=== PATIENT | male | born 1930 | race Caucasian/White ===

== ENCOUNTER 2017-10-06 10:34 | Day surgery (SDC) | payer MEDICARE, BC ==
[2017-10-05 11:02] VITALS: BMI 24.3
--- NOTE | 2017-10-06 13:07 | OP ---
DATE OF PROCEDURE: 10/06/2017 PROCEDURES: 1. Esophagogastroduodenoscopy. 2. Colonoscopy with biopsy. SURGEON: Andres Salinas M.D. ANESTHESIA: Medications given per Anesthesiology Department. PREPROCEDURE DIAGNOSIS: Iron deficiency anemia requiring transfusion. POSTPROCEDURE DIAGNOSES: 1. Cecal tumor. 2. Severe diverticulosis coli. 3. Normal upper endoscopy. PROCEDURE IN DETAIL: A written consent was obtained prior to procedure. After adequate sedation, th e forward-viewing endoscope was advanced down the hypopharynx under direct vision to the third portio n of duodenum. The duodenum including the duodenal bulb appeared normal. Pulses patent. The gastri c antrum, body, fundus, and cardia all appeared normal. GE junction, lower, mid, and upper esophagus appeared normal. The instrument was then fully removed. Patient was then repositioned for colon exam. Digital exam performed was normal. Endoscope was adva nced to the cecum with great difficulty through the sigmoid colon as there was severe diverticulosis coli. In the cecum, a tumor mass was noted filling the entire cecum; however, the ileocecal valve wa s still visible and appears not to be obstructed. Biopsies were obtained. A 4 mm semi-pedunculated polyp was noted in the distal ascending colon and was not removed. The hepatic flexure, transverse c olon, splenic flexure, and descending colon appeared normal. Numerous diverticula were noted in the sigmoid colon with severe luminal narrowing. The rectal vault appeared normal including retroflexion . ASSESSMENT: 1. Cecal tumor. 2. Severe diverticulosis coli. 3. Otherwise normal upper endoscopy. RECOMMENDATIONS: Await biopsy result.
[2017-10-06] MEDS ORDERED: PHENYLEPHRINE-NS 100 MCG/ML 10 ML SYRINGE ONE ×2 (13:08→14:22)
[2017-10-06 13:31] LABS: #Eosinphils 0.1 thou/uL (0.0-0.7); #Lymphocytes 0.8 thou/uL (1.20-3.40); #Monocytes 0.4 thou/uL (0.11-0.59); #Neutrophils 3.5 thou/uL (1.40-6.50); %Basophils 0.7 % (0.0-1.0); %Eosinophils 2.4 % (0.0-10.0); %Lymphocytes 16.1 % (21.0-51.0); %Monocytes 9.1 % (0.0-10.0); %Neutrophils 71.7 % (42.0-75.0); Hemoglobin 9.7 g/dL (14.0-18.0); Mean Corpuscular HGB CONC 30.4 g/dL (32.0-36.0); Mean Corpuscular Hemoglobin 24.3 pg (27.0-31.0); Mean Corpuscular Volume 80.2 fl (80.0-94.0); Mean Platelet Volume 8.7 fL (7.4-10.4); Platelet Count 207 thou/uL (130-400); RBC Distribution Width 22.9 % (11.5-14.5); White Blood Cell (WBC) Count 4.8 thou/uL (4.8-10.8)
[2017-10-06 13:44] LABS: Anisocytosis MODERATE=16-30 cells (100X) (0-5/hpf); Hypochromia SLIGHT = 6-15 cells (100X) (0-5/hpf); MDiff Complete? YES; Ovalocytes MODERATE= 6-15 cells (100X) (0-1/hpf); Polychromasia MODERATE = 3-4 cells (100X) (0-2/hpf)
[2017-10-06 13:46] LABS: Anion Gap 13 mmol/L (10-20); BUN (Urea Nitrogen) 17 mg/dL (8.4-25.7); Calc. Creatinine Clearance 46 mL/min (70-130); Calcium 8.8 mg/dL (7.8-10.44); Carbon Dioxide 27 mmol/L (23-31); Chloride 104 mmol/L (98-107); Estimated GFR-MDRD 56; Glucose 89 mg/dL (83-110); Potassium 3.8 mmol/L (3.5-5.1); Sodium 140 mmol/L (136-145)
[2017-10-06] MEDS ORDERED: Lidocaine 1% PF 5 ML VIAL ONE (14:22)
[2017-10-06] MEDS ORDERED: PROPOFOL 200 MG/20 ML VIAL ONE (14:22)
== END 2017-10-06 14:06 | disposition home or self-care (01) ==
LOC: SDC 10:34
PROVIDERS: ATTEND Internal Medicine Gastroenterology
PROC: 0DJ08ZZ Inspection of Upper Intestinal Tract, Via Natural or Artificial Opening Endoscopic (ICD-10-PCS; principal; 2017-10-06)
PROC: 0DBH8ZX Excision of Cecum, Via Natural or Artificial Opening Endoscopic, Diagnostic (ICD-10-PCS; 2017-10-06)
DX: C18.0 Malignant neoplasm of cecum (principal); D50.9 Iron deficiency anemia, unspecified; K57.30 Diverticulosis of large intestine without perforation or abscess without bleeding; E78.00 Pure hypercholesterolemia, unspecified; I48.91 Unspecified atrial fibrillation; I50.9 Heart failure, unspecified; I25.10 Atherosclerotic heart disease of native coronary artery without angina pectoris; I25.2 Old myocardial infarction; Z79.01 Long term (current) use of anticoagulants; Z79.899 Other long term (current) drug therapy; Z88.8 Allergy status to other drugs, medicaments and biological substances; Z87.891 Personal history of nicotine dependence
CPT/HCPCS: 36415; 80048; 82378; 85025; 88305; J2001; J2704

== ENCOUNTER 2017-11-05 10:26 | Outpatient (CLI) | payer MEDICARE, BC ==
[2017-11-05 12:31] LABS: INR-International Normal Ratio 1.1; PTT 29.4 SEC (22.9-36.1); Prothrombin Time 14.1 SEC (12.0-14.7)
[2017-11-05 12:32] LABS: Hemoglobin A1c 4.9 % (4.0-6.0)
[2017-11-05 12:38] LABS: Anion Gap 10 mmol/L (10-20); BUN (Urea Nitrogen) 19 mg/dL (8.4-25.7); Calc. Creatinine Clearance 0 mL/min (70-130); Calcium 9.4 mg/dL (7.8-10.44); Carbon Dioxide 27 mmol/L (23-31); Chloride 105 mmol/L (98-107); Estimated GFR-MDRD 52; Glucose 90 mg/dL (83-110); Potassium 4.3 mmol/L (3.5-5.1); Sodium 138 mmol/L (136-145)
[2017-11-05 12:44] LABS: #Eosinphils 0.1 thou/uL (0.0-0.7); #Lymphocytes 1.2 thou/uL (1.20-3.40); #Monocytes 0.5 thou/uL (0.11-0.59); #Neutrophils 4.4 thou/uL (1.40-6.50); %Basophils 0.7 % (0.0-1.0); %Eosinophils 1.5 % (0.0-10.0); %Lymphocytes 19.7 % (21.0-51.0); %Monocytes 8.1 % (0.0-10.0); %Neutrophils 70.1 % (42.0-75.0); Anisocytosis SLIGHT = 6-15 cells (100X) (0-5/hpf); Hemoglobin 12.1 g/dL (14.0-18.0); MDiff Complete? YES; Mean Corpuscular HGB CONC 30.4 g/dL (32.0-36.0); Mean Corpuscular Hemoglobin 26.2 pg (27.0-31.0); Mean Corpuscular Volume 86.2 fL (78.0-98.0); Mean Platelet Volume 9.9 fL (7.4-10.4); Ovalocytes SLIGHT = 2-5 cells (100X) (0-1/hpf); PLT Morphology Comment Appears Adequate; Platelet Count 200 thou/uL (130-400); RBC Distribution Width 21.6 % (11.5-14.5); Red Blood Cell (RBC) Count 4.62 mill/uL (4.70-6.10); White Blood Cell (WBC) Count 6.3 thou/uL (4.8-10.8)
== END 2017-11-05 10:27 | disposition home or self-care (01) ==
LOC: LABBT 10:26
PROVIDERS: ATTEND Surgery
DX: Z01.818 Encounter for other preprocedural examination (principal); C18.9 Malignant neoplasm of colon, unspecified
CPT/HCPCS: 80048; 83036; 85025; 85610; 85730

== ENCOUNTER 2017-11-05 10:30 | Inpatient (IN) | payer MEDICARE, BC ==
[2017-11-05 11:15] VITALS: BMI 24.3
[2017-11-08] MEDS ORDERED: Midazolam HCl 2 mg/2 ml Vial ONE ×2 (06:27→06:44)
[2017-11-08] MEDS ORDERED: Fentanyl 100 MCG/2 ML VIAL ONE (06:27)
[2017-11-08] MEDS ORDERED: Ketamine 50 MG/ML VIAL ONE (06:44)
[2017-11-08] MEDS ORDERED: Ondansetron HCl/PF 4 MG/2 ML Vial ONE ×2 (06:44→14:45)
[2017-11-08] MEDS ORDERED: Albumin 5% 500 ML ONE (06:44)
[2017-11-08] MEDS ORDERED: Fentanyl 250 MCG/5 ML VIAL ONE (06:44)
[2017-11-08] MEDS ORDERED: Phenylephrine HCL 10 MG/ML VIAL ONE (06:49)
[2017-11-08] MEDS ORDERED: cefOXitin 2 GM VIAL ONE (06:51)
[2017-11-08] MEDS ORDERED: Sodium Chloride 0.9% 100 ML ONE (06:51)
[2017-11-08] MEDS ORDERED: Dexamethasone 4 mg/ml Vial ONE (07:02)
[2017-11-08] MEDS ORDERED: SUGAMMADEX SODIUM 500 MG/5 ML VIAL ONE (09:15)
[2017-11-08] MEDS ORDERED: hydrALAZINE 20 MG/ML VIAL SLOW IVP PRN (10:37)
[2017-11-08] MEDS ORDERED: Promethazine HCl 25 MG/ML VIAL IM PRN (10:37)
[2017-11-08] MEDS ORDERED: Fentanyl 100 MCG/2 ML VIAL SLOW IVP PRN ×2 (10:37)
[2017-11-08] MEDS ORDERED: Ondansetron HCl/PF 4 MG/2 ML Vial IVP PRN (10:37)
[2017-11-08] MEDS ORDERED: Bupivacaine HCl 0.5%/Epinephrine 1:200,000/PF 30 ml Vial ONE (11:09)
[2017-11-08] MEDS ORDERED: Acetaminophen 1,000 MG in Premix Bag 1 BAG IVPB SCH (12:00)
[2017-11-08] MEDS: Sodium Chloride 0.9% 1,000 ML IV SCH ×2 (12:00→23:46)
[2017-11-08] MEDS ORDERED: Carvedilol 6.25 MG TAB PO SCH (12:30)
[2017-11-08] MEDS ORDERED: Furosemide 20 MG TAB PO SCH (12:30)
[2017-11-08] MEDS ORDERED: Digoxin 0.25 MG TAB PO SCH (12:30)
[2017-11-08] MEDS ORDERED: Levothyroxine Sodium 50 MCG TAB PO SCH (12:30)
[2017-11-08] MEDS: cefOXitin 2 GM in Sodium Chloride 0.9% 100 ML IVPB SCH ×2 (14:40→23:46)
[2017-11-08] MEDS ORDERED: Dexamethasone 20 MG/5 ML VIAL ONE (14:45)
[2017-11-08] MEDS ORDERED: Glycopyrrolate 0.2 MG/ML 5 ML SYRINGE ONE (14:45)
[2017-11-08] MEDS ORDERED: Ketorolac Tromethamine 30 MG/ML VIAL ONE (14:45)
[2017-11-08] MEDS ORDERED: ePHEDrine/0.9% NaCl/PF SYRINGE 50 mg/10 ml ONE (14:45)
[2017-11-08] MEDS ORDERED: PROPOFOL 200 MG/20 ML VIAL ONE (14:45)
[2017-11-08] MEDS: Acetaminophen 1,000 MG in Premix Bag 1 BAG IVPB SCH ×2 (16:12→20:37)
[2017-11-08] MEDS: Enoxaparin Sodium 40 MG/0.4 ML SYRINGE SC SCH (20:38)
[2017-11-08] MEDS: Famotidine 20 MG TAB PO SCH (20:38)
[2017-11-08] MEDS: Famotidine/PF 20 mg/2ml Vial SLOW IVP SCH (20:41)
[2017-11-08] MEDS: Carvedilol 6.25 MG TAB PO SCH (20:43)
[2017-11-09] MEDS: Acetaminophen 1,000 MG in Premix Bag 1 BAG IVPB SCH ×2 (02:26→09:04)
[2017-11-09] MEDS: Levothyroxine Sodium 50 MCG TAB PO SCH (05:44)
[2017-11-09 06:00] LABS: #Lymphocytes 0.9 thou/uL (1.20-3.40); #Monocytes 0.7 thou/uL (0.11-0.59); #Neutrophils 11.4 thou/uL (1.40-6.50); %Basophils 0.3 % (0.0-1.0); %Eosinophils 0.1 % (0.0-10.0); %Lymphocytes 6.7 % (21.0-51.0); %Monocytes 5.5 % (0.0-10.0); %Neutrophils 87.4 % (42.0-75.0); Hemoglobin 8.1 g/dL (14.0-18.0); Mean Corpuscular HGB CONC 31.2 g/dL (32.0-36.0); Mean Corpuscular Hemoglobin 26.8 pg (27.0-31.0); Platelet Count 162 thou/uL (130-400); RBC Distribution Width 20.7 % (11.5-14.5); Red Blood Cell (RBC) Count 3.01 mill/uL (4.70-6.10)
[2017-11-09 06:12] LABS: Anion Gap 13 mmol/L (10-20); BUN (Urea Nitrogen) 19 mg/dL (8.4-25.7); Calc. Creatinine Clearance 33 mL/min (70-130); Carbon Dioxide 24 mmol/L (23-31); Chloride 103 mmol/L (98-107); Estimated GFR-MDRD 39; Glucose 141 mg/dL (83-110); Potassium 4.2 mmol/L (3.5-5.1); Sodium 136 mmol/L (136-145)
[2017-11-09] MEDS: Furosemide 20 MG TAB PO SCH (09:05)
[2017-11-09] MEDS: Carvedilol 6.25 MG TAB PO SCH ×2 (09:05→20:28)
[2017-11-09] MEDS: Digoxin 0.25 MG TAB PO SCH (09:05)
[2017-11-09] MEDS: Famotidine 20 MG TAB PO SCH (09:05)
[2017-11-09] MEDS: Famotidine/PF 20 mg/2ml Vial SLOW IVP SCH (10:40)
--- NOTE | 2017-11-09 13:54 | PRG ---
DATE OF SERVICE: 11/09/2017 He is postop day #1 right colectomy. Mr. Velazco is doing well. He is tolerating liquids without diffi culty. He has been ambulatory, has no real complaints of pain. PHYSICAL EXAMINATION: VITAL SIGNS: He is afebrile. Vital signs are stable. ABDOMEN: Soft, nontender, nondistended. He has bowel sounds that are present. ASSESSMENT: Postop day #1 right colectomy, laparoscopic hand-assist. He needed to have Butts placed overnight. We will leave that in until tomorrow. If doing well tomor row, we will advance to full liquid diet.
[2017-11-09] MEDS: Enoxaparin Sodium 40 MG/0.4 ML SYRINGE SC SCH (20:27)
[2017-11-09] MEDS: Acetaminophen 325 MG TAB PO PRN (22:58)
[2017-11-10] MEDS ORDERED: Sodium Chloride 77 MEQ in Dextrose 10% in Water 1,000 ML IV SCH (03:45)
[2017-11-10] MEDS: Levothyroxine Sodium 50 MCG TAB PO SCH (05:32)
[2017-11-10] MEDS: Digoxin 0.25 MG TAB PO SCH (08:36)
[2017-11-10] MEDS: Famotidine 20 MG TAB PO SCH (08:36)
[2017-11-10] MEDS: Carvedilol 6.25 MG TAB PO SCH ×2 (08:36→21:38)
[2017-11-10] MEDS: Furosemide 20 MG TAB PO SCH (08:36)
[2017-11-10] MEDS: Famotidine/PF 20 mg/2ml Vial SLOW IVP SCH (08:41)
[2017-11-10] MEDS: Acetaminophen 325 MG TAB PO PRN (21:38)
[2017-11-11] MEDS: Levothyroxine Sodium 50 MCG TAB PO SCH (05:40)
[2017-11-11 06:01] LABS: #Eosinphils 0.1 thou/uL (0.0-0.7); #Monocytes 0.6 thou/uL (0.11-0.59); #Neutrophils 5.4 thou/uL (1.40-6.50); %Basophils 0.1 % (0.0-1.0); %Eosinophils 1.1 % (0.0-10.0); %Lymphocytes 13.7 % (21.0-51.0); Hemoglobin 7.5 g/dL (14.0-18.0); Mean Corpuscular HGB CONC 31.9 g/dL (32.0-36.0); Mean Corpuscular Hemoglobin 27.8 pg (27.0-31.0); Platelet Count 157 thou/uL (130-400); RBC Distribution Width 20.9 % (11.5-14.5); Red Blood Cell (RBC) Count 2.69 mill/uL (4.70-6.10); White Blood Cell (WBC) Count 7.1 thou/uL (4.8-10.8)
[2017-11-11 06:02] LABS: Anion Gap 12 mmol/L (10-20); BUN (Urea Nitrogen) 15 mg/dL (8.4-25.7); Calc. Creatinine Clearance 46 mL/min (70-130); Calcium 8.8 mg/dL (7.8-10.44); Carbon Dioxide 26 mmol/L (23-31); Chloride 107 mmol/L (98-107); Estimated GFR-MDRD 56; Glucose 92 mg/dL (83-110); Potassium 4.3 mmol/L (3.5-5.1); Sodium 141 mmol/L (136-145)
[2017-11-11 07:54] VITALS: TEMP 98.1
[2017-11-11] MEDS: Carvedilol 6.25 MG TAB PO SCH (08:16)
[2017-11-11] MEDS: Furosemide 20 MG TAB PO SCH (08:16)
[2017-11-11] MEDS: Famotidine 20 MG TAB PO SCH (08:17)
[2017-11-11] MEDS: Memantine Hcl [Namenda Xr] 28 MG PO SCH (08:29)
[2017-11-11] MEDS ORDERED: Digoxin 0.125 MG TAB PO SCH (09:00)
[2017-11-11] MEDS: Famotidine/PF 20 mg/2ml Vial SLOW IVP SCH (10:01)
[2017-11-11 11:25] VITALS: BP 106/68
--- NOTE | 2017-11-11 13:20 | OP ---
DATE OF PROCEDURE: 11/08/2017 PREOPERATIVE DIAGNOSIS: Ascending colon cancer. POSTOPERATIVE DIAGNOSIS: Ascending colon cancer. PROCEDURE: Laparoscopic hand-assist right colectomy by Dr. Colón without complication. SURGEON: Nahum Colón M.D. ANESTHESIA: General. ESTIMATED BLOOD LOSS: Minimal. COMPLICATIONS: None. FINDINGS: Masses in the specimen. TECHNIQUE: The patient was taken to the operating room, placed supine on the table. After general a nesthetic was obtained, a Butts was placed. The abdomen was shaved, prepped, and draped in a sterile fashion. Left subcostal 5-mm Optiview trocar was placed in usual fashion. High-flow pneumoperitone um obtained, 5-mm ports were placed suprapubic and in the left abdomen. The right colon was mobilize d along the white line of Toldt using cautery. The ureter was found and excluded from the dissection . Dissection is then performed on the medial aspect of the ascending colon mesentery. The base of t he ileocolic artery is skeletonizing, the ileocolic artery was taken using the LigaSure. Dissection was then taken out behind the colon towards the hepatic flexure. The duodenum was found and excluded from the dissection. Dissection was then performed all the way up and circumferentially around the proximal transverse colon. A 5 mm incision is made around and above the umbilicus. Cautery was used to dissect down to and into the abdominal cavity and the hand-assisted GelPort is placed. The rest of the hepatic flexure attachments were taken. The top of the hand-assist port is removed. Pneumo i nsufflation let down. This allowed the terminal ileum and right colon to be brought up out through t he GelPort. DEJON-75 was fired across the terminal ileum, reload was fired across the proximal hepatic flexure. The small bowel was able to be brought up against the transverse colon in an isoperistalti c fashion and holding stitches are placed on the antimesenteric surface of each to hold them together . Enterotomy is made on each and a [id number] isoperistaltic staple line is performed using DEJON-75 stapler. The common enterotomy/colotomy was closed using running 3-0 Vicryl full thickness and then 3-0 Vicryl serosal. Mesenteric defects closed using silk. There is no bleeding in the abdomen. Al l instrument counts, needle counts, lap counts are correct. The specimen sent to path for final diag nosis. The fascial defect was closing running PDS suture. Subcutaneous tissues are irrigated. Inci sions are closed using 3-0 Vicryl, 4-0 Monocryl, and Dermabond. The patient was en route to recovery in stable condition. All instrument counts, needle counts, lap counts were correct.
--- NOTE | 2017-11-11 14:51 | DIS ---
DATE OF ADMISSION: 11/08/2017 DATE OF DISCHARGE: 11/11/2017 ADMISSION DIAGNOSIS: Ascending colon cancer. DISCHARGE DIAGNOSIS: Ascending colon cancer. PROCEDURES: Laparoscopic hand-assist right hemicolectomy by Dr. Colón without complication. CONDITION AT DISCHARGE: Improved. STAFF: Dr. Colón. HOSPITAL COURSE: On postop day 3, the patient is tolerating full liquids. He has had multiple bowel movements. He had some blood in his bowel movements early on, has resolved. His hemoglobin was 7 y esterday and 7.5 today. He is being discharged home and we will follow up with me in 2 weeks.
== END 2017-11-11 14:00 | disposition home health service (06) | DRG 331 ==
LOC: SURG A 11-08 05:58
PROVIDERS: ADMIT Surgery; ATTEND Surgery
PROC: 0DTF4ZZ Resection of Right Large Intestine, Percutaneous Endoscopic Approach (ICD-10-PCS; principal; 2017-11-08)
DX: C18.2 Malignant neoplasm of ascending colon (principal); I25.10 Atherosclerotic heart disease of native coronary artery without angina pectoris; I25.5 Ischemic cardiomyopathy; I10 Essential (primary) hypertension; E78.5 Hyperlipidemia, unspecified; F03.90 Unspecified dementia, unspecified severity, without behavioral disturbance, psychotic disturbance, mood disturbance, and anxiety; N40.0 Benign prostatic hyperplasia without lower urinary tract symptoms; I25.2 Old myocardial infarction; I48.0 Paroxysmal atrial fibrillation; Z95.810 Presence of automatic (implantable) cardiac defibrillator; Z86.73 Personal history of transient ischemic attack (TIA), and cerebral infarction without residual deficits; Z85.828 Personal history of other malignant neoplasm of skin; Z79.01 Long term (current) use of anticoagulants; Z87.891 Personal history of nicotine dependence; Z79.82 Long term (current) use of aspirin; Z79.899 Other long term (current) drug therapy; Z01.818 Encounter for other preprocedural examination
CPT/HCPCS: 36415; 36416; 80048; 83036; 85018; 85025; 85610; 85730; 88309; J0131; J0670; J0694; J1100; J1642; J1650; J1885; J2250; J2370; J2405; J2704; J3010; J7050; P9045

== ENCOUNTER 2018-03-11 00:45 | Inpatient (IN) | payer MEDICARE, BC ==
[2018-03-11 01:23] LABS: #Lymphocytes 0.7 thou/uL (1.20-3.40); #Monocytes 0.7 thou/uL (0.11-0.59); #Neutrophils 12.9 thou/uL (1.40-6.50); %Basophils 0.2 % (0.0-1.0); %Eosinophils 0.2 % (0.0-10.0); %Lymphocytes 4.9 % (21.0-51.0); %Monocytes 4.6 % (0.0-10.0); %Neutrophils 90.2 % (42.0-75.0); Hemoglobin 12.3 g/dL (14.0-18.0); Mean Corpuscular HGB CONC 30.3 g/dL (32.0-36.0); Mean Corpuscular Hemoglobin 25.9 pg (27.0-31.0); Mean Corpuscular Volume 85.6 fL (78.0-98.0); Mean Platelet Volume 9.2 fL (7.4-10.4); Platelet Count 222 thou/uL (130-400); RBC Distribution Width 15.8 % (11.5-14.5); Red Blood Cell (RBC) Count 4.77 mill/uL (4.70-6.10); White Blood Cell (WBC) Count 14.3 thou/uL (4.8-10.8)
[2018-03-11] MEDS ORDERED: cefTRIAXone\\ROCEPHIN 2 GM VIAL ONE (01:35)
[2018-03-11] MEDS ORDERED: Sodium Chloride 0.9% 100 ML ONE (01:35)
[2018-03-11 01:43] LABS: ALT (SGPT) 10 U/L (8-55); AST (SGOT) 14 U/L (5-34); Albumin 4.1 g/dL (3.4-4.8); Alkaline Phosphatase 111 U/L (40-150); Anion Gap 18 mmol/L (10-20); BUN (Urea Nitrogen) 20 mg/dL (8.4-25.7); Bilirubin, Total 1.4 mg/dL (0.2-1.2); CK (CPK) 88 U/L (30-200); Calc. Creatinine Clearance 0 mL/min (70-130); Calcium 9.7 mg/dL (7.8-10.44); Carbon Dioxide 21 mmol/L (23-31); Chloride 106 mmol/L (98-107); Estimated GFR-MDRD 42; Globulin 2.9 g/dL (2.4-3.5); Glucose 256 mg/dL (83-110); Potassium 4.9 mmol/L (3.5-5.1); Sodium 140 mmol/L (136-145)
[2018-03-11 01:46] LABS: CKMB 1.9 ng/mL (0-6.6); Troponin I 0.025 ng/mL (< 0.028)
[2018-03-11] MEDS ORDERED: Acetaminophen 325 MG TAB PO PRN (03:20)
[2018-03-11] MEDS ORDERED: Ondansetron ODT 4 MG TAB SL PRN (03:20)
[2018-03-11] MEDS ORDERED: Ondansetron PF 4 MG/2 ML Vial IVP PRN ×2 (03:20→08:38)
[2018-03-11 03:39] VITALS: BMI 22.7
[2018-03-11 05:28] LABS: Lactic Acid 2.9 mmol/L (0.5-2.2)
--- NOTE | 2018-03-11 08:00 | RAD ---
SINGLE VIEW OF THE CHEST: COMPARISON: 08/27/2014. HISTORY: Dyspnea. FINDINGS: A single view of the chest shows an enlarged but stable cardiomediastinal silhouette. The pacemaker is unchanged in position. Increased opacities seen in the bilateral perihilar regions which may repr esent pulmonary vascular congestion. No consolidation or pleural effusion is seen. IMPRESSION: Cardiomegaly and pulmonary vascular congestion. POS: CET
[2018-03-11] MEDS ORDERED: Sodium Chloride 0.9% 1,000 ML IV SCH (08:45)
[2018-03-11] MEDS ORDERED: Dextrose 50% Abboject 50 ML SYRINGE IVP PRN (08:47)
[2018-03-11] MEDS ORDERED: Dextrose 5% in Water 1,000 ML IV PRN (08:47)
[2018-03-11] MEDS ORDERED: Insulin Regular 300 UNITS/3 ML VIAL SC PRN (08:47)
[2018-03-11] MEDS: Apixaban 2.5 MG TAB PO SCH (09:59)
[2018-03-11] MEDS: guaiFENesin ER 600 MG TAB PO SCH ×2 (10:04→20:34)
[2018-03-11] MEDS: Carvedilol 6.25 MG TAB PO SCH ×2 (10:04→20:35)
[2018-03-11] MEDS: Famotidine 20 MG TAB PO SCH (10:04)
[2018-03-11] MEDS: Acetaminophen 325 MG TAB PO SCH ×2 (11:30→18:32)
--- NOTE | 2018-03-11 18:42 | HP ---
DATE OF ADMISSION: 03/11/2018 CHIEF COMPLAINT ON ADMISSION: Pneumonia. HISTORY OF PRESENT ILLNESS: The patient is an 87-year-old male with severe dementia, cared for by hi s in their home. She is the historian because he cannot recall any details. She states that he was in his usual state of good health until the night before admission when he started to have cough ing. She gave him some Delsym and it seemed to suppress it a little until bedtime when his coughing then became much worse and unstoppable. It woke her up. She went and listened to him and he sounded like he could not catch his breath, so she called 911. The EMS arrived and put him on BiPAP and bro ught him to the emergency room, where by x-ray, he was noted to have a right lower lobe pneumonia. H e was put in for treatment of that. He denies any chest pain of any type. There has been no fever, nausea, vomiting, or diarrhea, and his symptoms have not been relieved by anything. PAST MEDICAL HISTORY: Significant for CHF. He had an acute [place] in with stent placement in the 1999, pacemaker defibrillator has been placed. He has moderate cognitive impairment at this point, hypertension, hyperthyroid, GERD, and dyslipidemia. PAST SURGICAL HISTORY: His prior surgery includes the ACID and pacemaker placed in 2013 and 2015, 2 stents placed in 2013, and an ablation. He has also had colon surgery. PSYCHIATRIC HISTORY: There is no psychiatric history. SOCIAL HISTORY: He denies any alcohol or drug use and he is . ALLERGIES: He has allergies to NIACIN and PRAVACHOL. MEDICATIONS ON ADMISSION: Carvedilol 6.25 mg b.i.d., digoxin 0.125 mg once a day, aspirin 81 mg a da y, vitamin D 1000 international units a day, Zantac 300 mg once a day, Namenda 28 mg once in the even ing, magnesium capsule 400 mg once a day, Lasix 20 mg once a day, potassium chloride 10 mEq once a da y, atorvastatin 40 mg at bedtime, Synthroid 50 mcg daily, and Eliquis 2.5 mg once a day. REVIEW OF SYSTEMS: His review of systems at the time of admission includes, General: No malaise, we akness, or fever; however, he has had protracted coughing and does report general weakness. HEENT: No lesions in the ears, eyes, nose, or throat with drainage or pain. Cardiovascular: Denies any pal pitations, chest pain, syncope. Respiratory: Persistent intractable coughing with shortness of ro[place] th. Gastrointestinal: Denies nausea, vomiting, diarrhea, or pain in the abdomen. Genitourinary: D enies dysuria, blood in the urine or stool. Musculoskeletal: Denies any back pain or joint pain. N o muscle aches or pains. Skin: Without any rashes or lesions. Neurologic: Significant for altered mental status and that he has no short-term memory left, but denies headaches, dizziness, any recent falls. Endocrine: Denies being cold having diarrhea, excessive thirst, or urination. Psychiatric: Again, has no recent memory, but denies hallucinations or depression. PHYSICAL EXAMINATION: VITAL SIGNS: At the time of admission, blood pressure 133/84, pulse 115, respirations 24, temperatur e 98.4. Pain scale 0/10 and O2 sat after coming into the ambulance with BiPAP was 90. His temperatu re while in the ER went up to 100.5 axillary. GENERAL: This is an elderly male, alert, cooperative, responsive. HEENT: Normocephalic and atraumatic. Pupils with diminished reactivity to light at 2 to 3 mm each w ith arcus senilis bilaterally. TMs, nares, pharynx are clear. CHEST: Rales in the right lower lobe, otherwise clear. HEART: Regular rate and rhythm without murmur. Tachycardic. ABDOMEN: Soft, nontender without organomegaly. GENITOURINARY: Deferred. EXTREMITIES: Without clubbing, cyanosis, or edema. There is mild muscular wasting in all extremitie s. SKIN: With generally poor turgor and no acute lesions. NEUROLOGIC: Cranial nerves are intact. Unable to test gait and cerebellar function at this time due to bedfastness. Deep tendon reflexes are at 2 in upper and lower extremities. Sensory exam is olimpia sly intact. Mental status reveals an alert, friendly male who is oriented x1 and euthymic, and denie s any thoughts of delusions or depression. His speech is spontaneous and clear and his thoughts are tangential . LABORATORY AND X-RAY FINDINGS: The lab on admission showed WBC is 14.3, hemoglobin 12.3, hematocrit 40.8 with platelets of 222. Distinct left shift is noted in the differential. Sodium 140, potassium 4.9, chloride is 106, CO2 is at 21, BUN is at 20, creatinine 1.58 with a GFR of 42. Glucose is 256. Point of care glucose two hours later is 115. Lactic acid was initially 3.9 and is now down to 2.9 . Liver functions are unremarkable. Cardiac enzymes are unremarkable. His BNP is slightly elevated at 1080. Chest x-ray confirms the right lower lobe pneumonia. ASSESSMENT: 1. Right lower lobe pneumonia. 2. Congestive heart failure, mild. 3. Severe dementia. 4. Dyslipidemia. 5. Hypothyroidism. PLAN: Plan will be to continue IV antibiotics until white count is normal and the patient no longer needs BiPAP for dyspnea. We will have a historical site guide consult just in case we need to manage his mild heart failure more aggressively.
[2018-03-11 19:53] LABS: Bilirubin Negative (Negative); Blood, Urine Negative (Negative); Clarity CLEAR (Clear); Glucose, Urine (Dipstick) Negative (Negative); Leukocyte Trace (Negative); Nitrite Negative (Negative); Protein, Urine (Dipstick) Trace mg/dL (Neg-Trace); Specific Gravity, Urine 1.026 (1.002-1.036); Urobilinogen 0.2 mg/dL (0.2-1.0)
[2018-03-11 19:58] LABS: Bacteria/HPF None Seen HPF (None Seen); Hyaline Casts/LPF 0-3 HYALINE CAST LPF (0-3 Hyaline); Pathc Cast-AUWi Flag 0.14 (0-2.49); Squamous Epithelial 0-3 HPF (0-3)
[2018-03-11 20:12] LABS: Transitional Epithelial 0-3 HPF (0-3)
[2018-03-11] MEDS: Atorvastatin Calcium 20 MG TAB PO SCH (20:35)
[2018-03-12] MEDS: Acetaminophen 325 MG TAB PO SCH ×4 (00:31→17:47)
[2018-03-12] MEDS: cefTRIAXone\\ROCEPHIN 1 GM in Sodium Chloride 0.9% 100 ML IVPB SCH (00:32)
[2018-03-12] MEDS: Levothyroxine Sodium 50 MCG TAB PO SCH (04:38)
[2018-03-12 04:56] LABS: #Lymphocytes 0.8 thou/uL (1.20-3.40); #Monocytes 0.7 thou/uL (0.11-0.59); #Neutrophils 6.1 thou/uL (1.40-6.50); %Basophils 0.3 % (0.0-1.0); %Eosinophils 0.5 % (0.0-10.0); %Lymphocytes 9.9 % (21.0-51.0); %Monocytes 9.6 % (0.0-10.0); %Neutrophils 79.7 % (42.0-75.0); Hemoglobin 9.4 g/dL (14.0-18.0); Mean Corpuscular HGB CONC 30.2 g/dL (32.0-36.0); Mean Corpuscular Hemoglobin 25.9 pg (27.0-31.0); Mean Corpuscular Volume 85.9 fL (78.0-98.0); Mean Platelet Volume 9.8 fL (7.4-10.4); Platelet Count 148 thou/uL (130-400); RBC Distribution Width 15.8 % (11.5-14.5); Red Blood Cell (RBC) Count 3.61 mill/uL (4.70-6.10); White Blood Cell (WBC) Count 7.7 thou/uL (4.8-10.8)
[2018-03-12 05:10] LABS: Cardiac Risk 2.4 (Less than 4.5)
--- NOTE | 2018-03-12 07:48 | PDOC.CTH ---
Cardiology Progress Note - Subjective PT doing much better today. No SOB present. He would like to go home - Objective Vital Signs Temp Pulse Resp BP BP Pulse Ox 03/12/18 07:42 98.5 F 114 H 94 H 101/65 18 L 03/12/18 06:54 92 L 03/12/18 06:52 89 18 92 L 03/12/18 04:00 98.2 F 82 16 109/68 92 L 03/12/18 00:00 98.3 F 90 16 116/63 92 L 03/11/18 21:14 91/58 L 03/11/18 21:04 98.7 F 93 16 89/47 L 88/47 L 93 L 03/11/18 20:00 95 Weight 158 lb 11.2 oz 03/11/18 03/12/18 03/13/18 06:59 06:59 05:59 Intake Total 325 Balance 325 - Physical Examination General/Neuro: alert & oriented x3, NAD Neck: carotid US brisk, no JVD present Lungs: unlabored respirations Heart: PMI normal, RRR Abdomen: NT/ND, soft Extremities: + femoral B - Labs Result Diagrams: 03/12/18 04:07 03/11/18 01:12 Troponin/CKMB CK-MB (CK-2) 1.9 ng/mL (0-6.6) 03/11/18 01:12 Troponin I 0.025 ng/mL (< 0.028) 03/11/18 01:12 - Assessment/Plan Pneumonia CAD Previous OK s/p stnet s/p AICD Doing much better Pt has diuresed. Echo pending Ok from my standpoint to dc with outpatient fu with Dr. Busch ACEI, ARB not used secondary to low BP. Continue statin, BB, ASA
[2018-03-12] MEDS: Carvedilol 6.25 MG TAB PO SCH ×2 (08:03→20:02)
[2018-03-12] MEDS: Apixaban 2.5 MG TAB PO SCH ×2 (08:03→20:02)
[2018-03-12] MEDS: guaiFENesin ER 600 MG TAB PO SCH ×2 (08:03→20:02)
[2018-03-12] MEDS: Famotidine 20 MG TAB PO SCH (08:04)
[2018-03-12] MEDS ORDERED: Prevnar 13-Val Conj/PF 0.5 ML SYRINGE IM ONE (09:00)
[2018-03-12] MEDS ORDERED: Apixaban 2.5 MG TAB PO SCH (10:45)
[2018-03-12] MEDS: Atorvastatin Calcium 20 MG TAB PO SCH (20:02)
[2018-03-12] MEDS ORDERED: Promethazine 25 MG TAB PO SCH (21:00)
[2018-03-13] MEDS: Acetaminophen 325 MG TAB PO SCH ×3 (00:47→13:00)
[2018-03-13] MEDS: cefTRIAXone\\ROCEPHIN 1 GM in Sodium Chloride 0.9% 100 ML IVPB SCH (00:48)
[2018-03-13 04:41] LABS: #Eosinphils 0.1 thou/uL (0.0-0.7); #Lymphocytes 0.7 thou/uL (1.20-3.40); #Monocytes 0.5 thou/uL (0.11-0.59); #Neutrophils 6.2 thou/uL (1.40-6.50); %Basophils 0.1 % (0.0-1.0); %Eosinophils 0.8 % (0.0-10.0); %Lymphocytes 9.3 % (21.0-51.0); %Monocytes 6.2 % (0.0-10.0); %Neutrophils 83.6 % (42.0-75.0); Hemoglobin 10.2 g/dL (14.0-18.0); Mean Corpuscular HGB CONC 30.9 g/dL (32.0-36.0); Mean Corpuscular Hemoglobin 26.3 pg (27.0-31.0); Mean Corpuscular Volume 85.2 fL (78.0-98.0); Mean Platelet Volume 9.7 fL (7.4-10.4); Platelet Count 157 thou/uL (130-400); RBC Distribution Width 15.7 % (11.5-14.5); Red Blood Cell (RBC) Count 3.86 mill/uL (4.70-6.10); White Blood Cell (WBC) Count 7.5 thou/uL (4.8-10.8)
[2018-03-13] MEDS: Levothyroxine Sodium 50 MCG TAB PO SCH (04:43)
[2018-03-13 05:08] LABS: Anion Gap 13 mmol/L (10-20); BUN (Urea Nitrogen) 22 mg/dL (8.4-25.7); Calc. Creatinine Clearance 42 mL/min (70-130); Carbon Dioxide 21 mmol/L (23-31); Chloride 107 mmol/L (98-107); Estimated GFR-MDRD 55; Glucose 106 mg/dL (83-110); Potassium 3.9 mmol/L (3.5-5.1); Sodium 137 mmol/L (136-145)
[2018-03-13] MEDS: Apixaban 2.5 MG TAB PO SCH (08:14)
[2018-03-13] MEDS: guaiFENesin ER 600 MG TAB PO SCH (08:15)
[2018-03-13] MEDS: Carvedilol 6.25 MG TAB PO SCH (08:16)
[2018-03-13] MEDS: Famotidine 20 MG TAB PO SCH (08:17)
--- NOTE | 2018-03-13 10:47 | CON ---
DATE OF CONSULTATION: 03/11/2018 REASON FOR CONSULTATION: History of CAD status post OK and recent pneumonia. HISTORY OF PRESENT ILLNESS: Mr. Velazco is a pleasant 87-year-old gentleman who is the patient of Dr. Alvina Busch. He has a history of CAD, status post stent placement and myocardial infarction. He recently presented with shortness of breath. This occurred after exertion. He had associated cough that was productive. He has significant shortness of breath and placed on BiPAP while in the emergen cy room. He was diagnosed with right lower lobe pneumonia. PAST MEDICAL AND SURGICAL HISTORY: As above including a previous OK status post stent placement, ICD placement, hypertension, hyperlipidemia. SOCIAL HISTORY: No current tobacco or alcohol use. ALLERGIES: NIACIN, PRAVACHOL. HOME MEDICATIONS: Include carvedilol, digoxin, Zantac, vitamin D, magnesium, Lasix, potassium, atorv astatin, Synthroid and Eliquis. REVIEW OF SYSTEMS: Ten-point review of systems reviewed and as above, otherwise negative. PHYSICAL EXAMINATION: GENERAL: Patient is a pleasant male who is in no acute distress. The patient appears his/her stated age. VITAL SIGNS: Blood pressure 125/72, pulse 109, temperature 97.9. NEUROLOGIC: The patient is alert and oriented times 3 with no focal neurologic deficits. HEENT: Sclerae without icterus. Mouth has moist mucous membranes with normal pallor. NECK: No JVD. Carotid upstroke brisk. No bruits bilaterally. LUNGS: Clear to auscultation with unlabored respirations. BACK: No scoliosis or kyphosis. CARDIAC: Regular rate and rhythm with normal S1 and S2. No S3 or S4 noted. No significant rubs, mu rmurs, thrills, or gallops noted throughout the precordium. PMI is not displaced. There is no wayne ternal heave. ABDOMEN: Soft, nontender, nondistended. No peritoneal signs present. No hepatosplenomegaly. No ab normal striae. EXTREMITIES: 2+ femoral and 2+ dorsalis pedis pulses. No cyanosis, clubbing, or edema. SKIN: No gross abnormalities. PERTINENT LABORATORY DATA: Hemoglobin 12.3, platelet count 222. White blood cell count 14,000. Cre atinine 1.58. BNP of 1080. IMPRESSION: 1. Right lower lobe pneumonia. 2. Chronic systolic heart failure. 3. Previous myocardial infarction. 4. Status post stent placement. 5. Status post implantable cardioverter defibrillator. RECOMMENDATIONS: The patient has diuresed and feels much better today. At this point, we will alex nue outpatient medication and also continue with antibiotic therapy per Dr. Jayden Golden.
[2018-03-13 16:40] VITALS: BP 133/84; TEMP 98
--- NOTE | 2018-03-14 10:57 | DIS ---
DATE OF ADMISSION: 03/11/2018 DATE OF DISCHARGE: 03/13/2018 CHIEF COMPLAINT ON ADMISSION: Right lower lobe pneumonia. History and physical have previosly been dictated and I will resume from there. HOSPITAL COURSE: The patient did well overnight with diminishing dyspnea, shortness of breath, color looked well. White count decreased to 7.7. Urinalysis was clear. At this point, it was evident th at the patient can be transferred out of the IMCU up to a medical bed. There, the patient did well a nd remained on IV antibiotics for an additional 24 hours. Initially, we had gram negative cocci whic h was then later identified by 03/13/2018 as Haemophilus influenzae. The patient was clinically much better. There has been no fever. Vital signs were stable. No dyspnea and it was evident that his BNP also had diminished from over 1000 down to 833. Cholesterol 73, LDL 33, HDL 30. TSH 1.28. His glucose was monitored while in the hospital. He is not a diabetic. Urinary analysis showed no infec tion. Echocardiogram was obtained while hospitalized which showed an ejection fraction of 20-25% and akinetic anterior wall of the left ventricle. The left atrium is moderate to severely dilated. The re is severe mitral regurgitation present, moderate tricuspid regurgitation and the pulmonary artery pressures are mildly elevated. The patient, however, did well and feels much better and is able to g o home on 03/13/2018. DIAGNOSES AT THE TIME OF DISCHARGE: 1. Right lower lobe pneumonia. 2. Congestive heart failure, mild exacerbation, systolic, acute on chronic and severe dementia, stab le. 3. Dyslipidemia, stable. 4. Hypothyroidism, stable. The chart was reviewed, and the patient reevaluated prior to discharge. Questions were answered for the patient and his and the chart was prepared for discharge. Paperwork prescriptions called ou t to the [facility] on [address] and all his medications are reconciled prior to discharge. He will follo w up with Dr. Golden in 5 days. They will call to make a followup appointment with Dr. Busch in the morning and he is discharged in stable condition.
== END 2018-03-13 16:40 | disposition home or self-care (01) | DRG 193 ==
LOC: ERS 00:45 → IMCU/EMU 03:12 → T4-B 13:52
PROVIDERS: ADMIT Specialist; ATTEND Specialist
PROC: 5A09357 Assistance with Respiratory Ventilation, Less than 24 Consecutive Hours, Continuous Positive Airway Pressure (ICD-10-PCS; principal; 2018-03-11)
DX: J14 Pneumonia due to Hemophilus influenzae (principal); I50.23 Acute on chronic systolic (congestive) heart failure; I08.1 Rheumatic disorders of both mitral and tricuspid valves; F03.90 Unspecified dementia, unspecified severity, without behavioral disturbance, psychotic disturbance, mood disturbance, and anxiety; E78.5 Hyperlipidemia, unspecified; E03.9 Hypothyroidism, unspecified; I25.2 Old myocardial infarction; I25.10 Atherosclerotic heart disease of native coronary artery without angina pectoris; Z95.5 Presence of coronary angioplasty implant and graft; I11.0 Hypertensive heart disease with heart failure; Z95.810 Presence of automatic (implantable) cardiac defibrillator; Z91.81 History of falling; K21.9 Gastro-esophageal reflux disease without esophagitis
CPT/HCPCS: 36415; 36416; 71045; 80048; 80053; 80061; 81003; 81015; 82550; 82553; 83605; 83880; 84443; 84484; 85025; 87040; 87077; 87149; 93005; 93306; 94640; 94660; 94760; 96365; 96367; J0696; J1956; J7050; J7620

== ENCOUNTER 2018-06-24 12:54 | Outpatient (CLI) | payer MEDICARE, BC ==
--- NOTE | 2018-06-24 13:47 | ULT ---
LIMITED RIGHT BREAST ULTRASOUND: 06/24/2018 PROVIDED CLINICAL HISTORY: Right breast palpable abnormality and tenderness. TECHNIQUE: Limited sonographic interrogation was performed of the retroareolar portion of the right breast, in t he region of patient complaint. FINDINGS: There is flame-shaped retroareolar altered echogenicity, in a pattern typical for gynecomastia. No f ocal mass is apparent. IMPRESSION: 1. Sonographic findings are compatible with gynecomastia. 2. BI-RADS category 2-Benign findings. POS: OFF
== END 2018-06-24 12:55 | disposition home or self-care (01) ==
LOC: BICMAMMO 12:54
PROVIDERS: ATTEND Specialist
DX: N63.10 Unspecified lump in the right breast, unspecified quadrant (principal); N62 Hypertrophy of breast; Z80.3 Family history of malignant neoplasm of breast
CPT/HCPCS: 77063; 77067